=== PATIENT | male | born 1945 | race Caucasian/White ===

== ENCOUNTER 2025-08-19 17:46 | Emergency (ER) | payer MEDICARE, SELFPAY ==
[2025-08-19 18:12] VITALS: BP 126/78; PULSE 76; RESP 13; TEMP 36.4; O2SAT 99; BMI 23.6
--- NOTE | 2025-08-19 18:22 | DI.CT.S_ITS ---
PROCEDURE: CT CERVICAL SPINE WO CON INDICATIONS: fall TECHNIQUE: Noncontrast 3 mm thick sections acquired from the skull base to the T4 level. Sagittal and coronal reformats were then constructed. For radiation dose reduction, the following was used: automated exposure control, adjustment of mA and/or kV according to patient size. COMPARISON: None. FINDINGS: Image quality: Excellent. Bones: No acute fractures or dislocations. Visualized superior ribs are intact. Multilevel disc space narrowing and degenerative endplate changes. Multilevel uncovertebral joint and facet hypertrophy. Soft tissues: Prevertebral soft tissues are normal in thickness. No paravertebral hematomas. No apical pneumothoraces. IMPRESSION: No acute displaced fracture or traumatic subluxation. Multilevel spondylosis. Approved by: Alex Berger M.D. on 08/19/2025 at 19:07
--- NOTE | 2025-08-19 18:22 | DI.CT.S_ITS ---
PROCEDURE: CT FACIAL BONES WO CON INDICATIONS: fall TECHNIQUE: Noncontrast 2.5 mm thick axial images acquired from the mandible through the frontal sinuses, with coronal and sagittal reformatting. For radiation dose reduction, the following was used: automated exposure control, adjustment of mA and/or kV according to patient size. COMPARISON: None. FINDINGS: Image quality: Excellent. Bones and teeth: Orbital christianson are intact. Sinus christianson show no fracture or deformity. Nasal bones and septum are intact. Visualized portions of the mandible demonstrate no fractures or subluxation. Zygomatic arches are intact. Pterygoid plates are intact. Visualized portions of the skull base and auditory canals are intact. Sinuses: Mild mucosal thickening in the right maxillary sinus. Paranasal sinuses are otherwise aerated, without fluid levels, mucosal thickening, or mucoceles. Mastoid air cells are aerated. Soft tissues: Small right frontal supraorbital scalp hematoma. No enlarged lymph nodes. No soft tissue lacerations or debris. Vascular: Visualized vascular structures appear normal in the absence of contrast. Bony vascular foramina and canals are intact. IMPRESSION: No acute facial fracture. Approved by: Alex Berger M.D. on 08/19/2025 at 19:05
--- NOTE | 2025-08-19 18:22 | DI.RAD.S_ITS ---
PROCEDURE: XR FINGER RT MIN 2V INDICATIONS: fall TECHNIQUE: AP hand, 2 views of the small finger(s) acquired. COMPARISON: None. FINDINGS: Acute angulated fracture of the base of the 5th proximal phalanx. 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 No dislocation. Chronic deformity of the 5th metacarpal. IMPRESSION: Acute 5th proximal phalanx fracture. Dictated by: Keegan Starks M.D. on 08/19/2025 at 19:03 Approved by: Keegan Starks M.D. on 08/19/2025 at 19:04
--- NOTE | 2025-08-19 18:22 | DI.RAD.S_ITS ---
PROCEDURE: XR SHOULDER RT MIN 2V INDICATIONS: fall TECHNIQUE: 3 views of the shoulder were acquired. COMPARISON: None. FINDINGS: Bones: No fractures or dislocations. No suspicious bony lesions. Visualized ribs appear intact. Degenerative changes of the glenohumeral and acromioclavicular joint. Soft tissues: No suspicious soft tissue calcifications. IMPRESSION: No acute bony abnormality. Dictated by: Keegan Starks M.D. on 08/19/2025 at 19:03 Approved by: Keegan Starks M.D. on 08/19/2025 at 19:03
--- NOTE | 2025-08-19 18:22 | DI.RAD.S_ITS ---
PROCEDURE: XR CHEST 2V INDICATIONS: fall TECHNIQUE: 2 views of the chest were acquired. COMPARISON: None. FINDINGS: Surgical changes and devices: None. Lungs and pleura: Lungs are clear. No pleural effusions or pneumothorax. Mediastinum: Mediastinal contours are normal. Heart size is normal. Bones and chest wall: No obvious displaced rib fracture. No suspicious bony abnormalities. Soft tissues appear unremarkable. IMPRESSION: No acute cardiopulmonary abnormality is seen. Approved by: Alex Berger M.D. on 08/19/2025 at 19:09
--- NOTE | 2025-08-19 18:22 | DI.CT.S_ITS ---
PROCEDURE: CT HEAD/BRAIN WO CON INDICATIONS: fall TECHNIQUE: Noncontrast 4.5 mm thick angled axial sections acquired from the foramen magnum to the vertex, with coronal and sagittal reformats. For radiation dose reduction, the following was used: automated exposure control, adjustment of mA and/or kV according to patient size. COMPARISON: None. FINDINGS: Image quality: Diagnostic. CSF spaces: Basal cisterns are patent. No extra-axial fluid collections. The ventricles are symmetric in size and shape. Brain: No acute intracranial hemorrhage or mass effect.. There is cerebral volume loss, with resultant ventricular and sulcal prominence. There are periventricular and deep white matter chronic small vessel ischemic changes. There is intracranial internal carotid artery atherosclerosis. Skull and face: Small right frontal scalp hematoma. Calvarium and visualized facial bones appear intact, without suspicious lesions. Sinuses: Visualized sinuses and mastoids are clear. IMPRESSION: 1. Small right frontal scalp hematoma. No skull fracture. No acute intracranial hemorrhage. 2. Moderate chronic microvascular ischemic changes and generalized parenchymal volume loss. Approved by: Alex Berger M.D. on 08/19/2025 at 19:03
[2025-08-19] MEDS: ACETAMINOPHEN 325 MG TABLET 650 MG PO (18:33)
[2025-08-19] MEDS: TET,DIPH,PERTUSS(ACELL),VAC/PF 0.5 ML SYRINGE IM (18:34)
[2025-08-19 22:04] VITALS: PULSE 80; O2SAT 98
--- NOTE | 2025-08-19 22:25 | ED_ITS ---
HPI - Fall General Chief Complaint: Fall Stated Complaint: Fall, faceplant Time Seen by Provider: 08/19/25 19:04 Mode of arrival: Wheelchair History of Present Illness HPI Narrative: 79-year-old male had a mechanical fall at the hotel having a face plant after missing a step. He denies any headache, dizziness, loss of consciousness, nausea, vomiting, blurred vision, neck pain, back pain, but did hit right shoulder, knees, and hands against the ground breaking the fall. He is not on any blood thinners at this time. He is due for his tetanus to be updated next year. Denies any shortness of breath, dyspnea on exertion, bowel or bladder incontinence, abdominal pain, or gait instability. Other than what is stated 14 point review of system is negative. Related Data Previous Rx's ?Medication ?Instructions ?Recorded hydrocodone 5 mg-acetaminophen 325 1 tab PO Q4-6H PRN pain #20 tabs 08/19/25 mg tablet Allergies Allergy/AdvReac Type Severity Reaction Status Date / Time No Known Drug Allergies Allergy Verified 08/19/25 18:12 Review of Systems Review of Systems ROS Unobtainable: All systems reviewed & are unremarkable except as noted in HPI and below Patient History Smoking Status: Unknown if ever smoked Exam Narrative Exam Narrative: GENERAL: [79] year old patient appears stated age. Well-developed patient, in mild distress. HEAD: Atraumatic. Normocephalic. EYES: Pupils equal round and reactive. Extraocular motions intact. No scleral icterus. No injection or drainage. ENT: Nose without bleeding, purulent drainage. Throat without erythema, tonsillar hypertrophy or exudate. Airway patent. NECK: Trachea midline. Non tender CARDIOVASCULAR: Regular rate and rhythm without murmurs, gallops, or rubs. RESPIRATORY: Clear to auscultation. Breath sounds equal bilaterally. No wheezes, rales, or rhonchi. GASTROINTESTINAL: Abdomen soft, non-tender, nondistended. EXTREMITIES: Right 5th digit swollen hematoma proximal phalanx middle phalanx and distal distal phalanx. Angulated at MP joint, motor sensory intact +2 radial pulse cap refill less than 2 seconds. Full range of motion of all other fingers and thumb. BACK: Nontender without deformity or crepitance. No flank tenderness. NEURO: AOx3. SKIN: Facial abrasion multiple. Initial Vital Signs Initial Vital Signs: Vital Signs Temperature 97.6 F 08/19/25 18:12 Pulse Rate 76 08/19/25 18:12 Respiratory Rate 13 08/19/25 18:12 Blood Pressure 126/78 08/19/25 18:12 Pulse Oximetry 99 08/19/25 18:12 Oxygen Delivery Method Room Air 08/19/25 18:12 Course Orders Ordered: ED Orders 08/19/25 18:22 CT cervical spine wo con Stat CT facial bones wo con Stat CT head/brain wo con Stat Chest [XR chest 2V] Stat XR finger RT min 2V Stat XR shoulder RT 2+ views Stat Discontinued Medications Acetaminophen (Acetaminophen 325 Mg Tablet) 650 mg PO NOW ONE Stop: 08/19/25 18:25 Last Admin: 08/19/25 18:33 Dose: 650 mg Documented By: ANSLEY Diphtheria/Tetanus/Acell Pertussis (Tet,Diph,Pertuss(Acell),Vac/Pf 0.5 Ml Syringe) 0.5 ml IM .ONCE ONE Stop: 08/19/25 18:27 Last Admin: 08/19/25 18:34 Dose: 0.5 ml Documented By: ANSLEY Vital Signs Vital signs: Vital Signs - 8 hr 08/19/25 18:12 Temperature 97.6 F Pulse Rate 76 Respiratory Rate 13 Blood Pressure 126/78 Pulse Oximetry 99 Oxygen Delivery Method Room Air MDM - Fall Imaging Data CT scan - head: Radiologist's Impression: [place] [address] CT Scan Report Signed Patient: Dashawn Teixeira MR#: [id number] : 1945 Acct:[id number] Age/Sex: 79 / M Date of Service: 08/19/25 Loc: ED Accession Number: [id number] Procedure: CT head/brain wo con Ordering Provider: Adonis Milton D.O. PROCEDURE: CT HEAD/BRAIN WO CON INDICATIONS: fall TECHNIQUE: Noncontrast 4.5 mm thick angled axial sections acquired from the foramen magnum to the vertex, with coronal and sagittal reformats. For radiation dose reduction, the following was used: automated exposure control, adjustment of mA and/or kV according to patient size. COMPARISON: None. FINDINGS: Image quality: Diagnostic. CSF spaces: Basal cisterns are patent. No extra-axial fluid collections. The ventricles are symmetric in size and shape. Brain: No acute intracranial hemorrhage or mass effect.. There is cerebral volume loss, with resultant ventricular and sulcal prominence. There are periventricular and deep white matter chronic small vessel ischemic changes. There is intracranial internal carotid artery atherosclerosis. Skull and face: Small right frontal scalp hematoma. Calvarium and visualized facial bones appear intact, without suspicious lesions. Sinuses: Visualized sinuses and mastoids are clear. IMPRESSION: 1. Small right frontal scalp hematoma. No skull fracture. No acute intracranial hemorrhage. 2. Moderate chronic microvascular ischemic changes and generalized [place] [address] CT Scan Report Signed Patient: Dashawn Teixeira MR#: [id number] : 1945 Acct:[id number] Age/Sex: 79 / M Date of Service: 08/19/25 Loc: Accession Number: [id number] Procedure: CT facial bones wo con Ordering Provider: Adonis Milton D.O. PROCEDURE: CT FACIAL BONES WO CON INDICATIONS: fall TECHNIQUE: Noncontrast 2.5 mm thick axial images acquired from the mandible through the frontal sinuses, with coronal and sagittal reformatting. For radiation dose reduction, the following was used: automated exposure control, adjustment of mA and/or kV according to patient size. COMPARISON: None. FINDINGS: Image quality: Excellent. Bones and teeth: Orbital christianson are intact. Sinus christianson show no fracture or deformity. Nasal bones and septum are intact. Visualized portions of the mandible demonstrate no fractures or subluxation. Zygomatic arches are intact. Pterygoid plates are intact. Visualized portions of the skull base and auditory canals are intact. Sinuses: Mild mucosal thickening in the right maxillary sinus. Paranasal sinuses are otherwise aerated, without fluid levels, mucosal thickening, or mucoceles. Mastoid air cells are aerated. Soft tissues: Small right frontal supraorbital scalp hematoma. No enlarged lymph nodes. No soft tissue lacerations or debris. Vascular: Visualized vascular structures appear normal in the absence of contrast. Bony vascular foramina and canals are intact. IMPRESSION: No acute facial fracture. Chest x-ray: Radiologist's Impression: [address] [address] XRay Report Signed Patient: Dashawn Teixeira MR#: [id number] : 1945 Acct:[id number] Age/Sex: 79 / M Date of Service: 08/19/25 Loc: ED Accession Number: [id number] Procedure: XR chest 2V Ordering Provider: Adonis Milton D.O. PROCEDURE: XR CHEST 2V INDICATIONS: fall TECHNIQUE: 2 views of the chest were acquired. COMPARISON: None. FINDINGS: Surgical changes and devices: None. Lungs and pleura: Lungs are clear. No pleural effusions or pneumothorax. Mediastinum: Mediastinal contours are normal. Heart size is normal. Bones and chest wall: No obvious displaced rib fracture. No suspicious bony abnormalities. Soft tissues appear unremarkable. IMPRESSION: No acute cardiopulmonary abnormality is seen. Extremity x-ray #2: Radiologist's Impression: [address] [address] XRay Report Signed Patient: Dashawn Teixeira MR#: [id number] : 1945 Acct:[id number] Age/Sex: 79 / M Date of Service: 08/19/25 Loc: ED Accession Number: [id number] Procedure: XR shoulder RT 2+ views Ordering Provider: Adonis Milton D.O. PROCEDURE: XR SHOULDER RT MIN 2V INDICATIONS: fall TECHNIQUE: 3 views of the shoulder were acquired. COMPARISON: None. FINDINGS: Bones: No fractures or dislocations. No suspicious bony lesions. Visualized ribs appear intact. Degenerative changes of the glenohumeral and acromioclavicular joint. Soft tissues: No suspicious soft tissue calcifications. IMPRESSION: No acute bony abnormality. Dictated by: Keegan Starks M.D. on 08/19/2025 at 19:03 Approved by: Keegan Starks M.D. on 08/19/2025 at 19:03 Extremity x-ray #3: Radiologist's Impression: [address] [address] XRay Report Signed Patient: Dashawn Teixeira MR#: [id number] : 1945 Acct:[id number] Age/Sex: 79 / M Date of Service: 08/19/25 Loc: ED Accession Number: [id number] Procedure: XR finger RT min 2V Ordering Provider: Adonis Milton D.O. PROCEDURE: XR FINGER RT MIN 2V INDICATIONS: fall TECHNIQUE: AP hand, 2 views of the small finger(s) acquired. COMPARISON: None. FINDINGS: Acute angulated fracture of the base of the 5th proximal phalanx. 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 No dislocation. Chronic deformity of the 5th metacarpal. IMPRESSION: Acute 5th proximal phalanx fracture. MDM Narrative Medical decision making narrative: All lab work, vital signs, nurse triage note, medication list, previous ER visits, and all imaging studies reviewed. CT cervical spine showed no acute displaced fracture or traumatic subluxation multilevel spondylosis. Chest x-ray showed no acute process. Face CT showed no acute process as well as shoulder x- ray and head CT. Finger x-ray showed acute 5th proximal phalanx fracture. Pa tient placed in a U-shaped splint and to follow up with [facility]. Differential diagnosis includes hemorrhage CVA pneumothorax rib fracture dislocation contusion. Finger splint placed [place] given and will give [place] prescription. Discharge Plan Departure Patient Disposition: Home Clinical Impression: Fall, Fracture of proximal phalanx of digit of hand Activity Restrictions/Additional Instructions: Return with new or worsening symptoms. Please follow up with [facility] referral. Call office for appointment. Take medicine as directed for pain control. Prescriptions: New hydrocodone-acetaminophen 5-325 mg tablet 1 tab PO Q4-6H PRN (Reason: pain) Qty: 20 0RF Stand Alone Forms: Patient Portal/API
[2025-08-19 22:30] VITALS: PULSE 78; O2SAT 98
[2025-08-19 22:41] VITALS: BP 138/73; PULSE 78; O2SAT 99
== END 2025-08-19 23:02 | disposition home or self-care (01) ==
PROVIDERS: Emergency Provider Family Medicine
DX: S62.616A Displaced fracture of proximal phalanx of right little finger, initial encounter for closed fracture (principal); W18.30XA Fall on same level, unspecified, initial encounter; Z23 Encounter for immunization
CPT/HCPCS: 70450; 70486; 71046; 72125; 73030; 73140; 90471; 99283; 99284; 90715